=== PATIENT | male | born 1985 | race Hispanic/Latino ===

== ENCOUNTER 2017-09-16 22:17 | Emergency (ER) | payer SELFPAY ==
[2017-09-16 23:10] LABS: BASOPHILS % (AUTO) 0.4 % (0.0-5.0); EOSINOPHILS % (AUTO) 2.3 % (0.0-8.0); HEMATOCRIT 39.8 % (42-54); LYMPHOCYTES % (AUTO) 16.9 % (21.0-51.0); MEAN CORPUSCULAR HEMOGLOBIN 29.4 pg (27.0-33.0); MEAN CORPUSCULAR HGB CONC 33.8 g/dL (32.0-36.0); MEAN CORPUSCULAR VOLUME 87.1 fL (79-99); MONOCYTES % (AUTO) 6.5 % (3.0-13.0); NEUTROPHILS % (AUTO) 73.9 % (40.0-77.0); PLATELET COUNT (AUTO) 195 K/uL (130-400); RED BLOOD CELL COUNT(AUTO) 4.57 MIL/uL (4.50-6.20); RED CELL DISTRIBUTION WIDTH 14.5 % (11.0-15.5); WHITE BLOOD COUNT (AUTO) 11.8 K/uL (4.8-10.8)
[2017-09-16] MEDS ORDERED: KETOROLAC TROMETHAMINE 30MG/ML ONE (23:13)
[2017-09-16 23:21] LABS: POTASSIUM 3.5 mmol/L (3.5-5.1)
[2017-09-16 23:26] LABS: ALBUMIN 3.6 g/dL (3.5-5.0); BILIRUBIN,TOTAL 0.4 mg/dL (0.2-1.0); CRP QUANTITATIVE 115.8 mg/L (0.00-9.0); TOTAL PROTEIN, SERUM 8.3 g/dL (6.0-8.3)
[2017-09-16 23:34] LABS: INR 0.88 (0.85-1.15); PARTIAL THROMBOPLASTIN TIME 27.7 SEC (26.3-35.5); PROTHROMBIN TIME 9.3 SEC (9.6-11.6)
[2017-09-16] MEDS ORDERED: CEFTRIAXONE SODIUM 1 GM ONE (23:49)
[2017-09-16] MEDS ORDERED: SULFAMETHOX-TMP DS 800/160 TAB ONE (23:49)
[2017-09-17 00:35] LABS: ERYTHROCYTE SEDIMENTATION RATE 65 MM/HR (0-15)
== END 2017-09-17 01:01 | disposition home or self-care (01) ==
LOC: EDH 22:17
DX: L03.116 Cellulitis of left lower limb (principal)
CPT/HCPCS: 36415; 73630; 80053; 82948; 85025; 85610; 85651; 85730; 86140; 87040 ×2; 96374; 96375; 99285; J0696; J1885